=== PATIENT | female | born 1965 | race Caucasian/White ===

== ENCOUNTER 2021-10-02 12:53 | Emergency (ER) | payer OTHER, MEDICAID, SELFPAY ==
[2021-10-02 13:00] VITALS: BP 142/91; PULSE 93; RESP 18; TEMP 36.9; O2SAT 97; BMI 31.9
--- NOTE | 2021-10-02 13:17 | ED_ITS ---
HPI - General Adult General Chief complaint: Back Injury/Pain Stated complaint: Back pain Time Seen by Provider: 10/02/21 12:57 History of Present Illness HPI narrative: 55-year-old female coming in today complaining of back and bilateral leg pain. He states that she has ?4 slipped discs?. States she has been living in [place] for the last 2 and half years and getting her care there. She states that for these slipped this she has been taking only Tylenol. She states that when she got off the plane her back pain was significantly worse and the pain radiated down both legs: Laterally anteriorly to the knees and that both of her legs were swollen. She denies trauma to the legs. She denies trauma to her back. States that the back pain is in the low back and that generally has not gotten worse. She states that the pain in her legs is so significant that she can hardly walk. She states that her son has to help her get out of a chair to get going. She denies any fevers, chills, nausea or vomiting. She is not short of breath. She denies any coughing or chest pain. She denies no abdominal discomfort. She denies any loss of bowel or bladder function. I asked the patient what has helped her in the past and she becomes very angry at me stating that that is my job to figure out what will make her better. She tells me that she needs an MRI right away. I tell her that on a Sunday, that is not something that we can accommodate. Patient becomes even more upset telling me that I am supposed to be able to order any tests that I feel that she needs and she needs an MRI. When I tell her again that that is not possible today and I can certainly get her an outpatient appointment in the clinic she tells me that this is not acceptable. She tells me that then she needs an x-ray. I tell her that we will likely not see anything on x-ray given that her symptoms are not necessarily new which she has been dealing with them for the last 2 and half years. Patient yells at me and tells me that I do not know what I am doing. She then tells me that I better not give her any steroids ?my dad had a dose of steroids when they were 1st invented and he got better right away but now the steroids that you use make people worse and you use them so that people stay sick and you can keep making money off of them.? She also tells me that she does not understand why I am asking her so many questions. I tell her that I am asking her questions so that we can come up with the best care plan for her. She tells me that she does not believe me. She says ?you probably want to give me steroid shots every month so that I keep coming back here. But the shots are only going to make me worse and you don't care if I get better.? I Tell the patient that we are having significant miscommunication issues today and that my intent is to make her feel better and to come up with a care plan for her. I do tell her without any uncertainty however, that I cannot fix her problems today and take away her pain in their entirety. Patient replies with ?well the least you can do is an x-ray then. ? I did look the patient up on the drug monitoring web site- nothing found. I do not have access to [place]. Of note, patient does have a history of scoliosis with pamela placement. Related Data Home Medications Medication Instructions Recorded Confirmed No Known Home Medications 10/02/21 10/02/21 Allergies Allergy/AdvReac Type Severity Reaction Status Date / Time Sulfa (Sulfonamide Allergy Mild Itchiness Verified 10/02/21 13:08 Antibiotics) Review of Systems Status of ROS: Reports: 10 or more systems reviewed and unremarkable except as noted in History and below [facility] Medical History Slipped intervertebral disc Surgical History History of arthroplasty of right knee History of back surgery Social History Smoking Status: Current every day smoker Do you use any of these nicotine containing products: None How often do you have a drink containing alcohol: never AUDIT-C Alcohol total score: 0 Non-prescribed substance use: denies use Exam Narrative: Exam Narrative: Overweight well-developed patient in no acute distress. She does appear slightly disheveled. Answers questions appropriately. Affect is normal, mood is angry. Patient speaks and raises her voice in full sentences without needing to catch her breath. HEENT: Normocephalic atraumatic. Pupils are equally round reactive to light. Extraocular muscles are intact. Conjunctivae are moist without any icterus noted. Moist mucous membranes. Posterior pharynx is normal. Neck is soft without any lymphadenopathy or thyromegaly. No masses are appreciated. Cardiovascular: Heart is regular rate and rhythm S1 and S2 are present. Lungs: Clear to auscultation bilaterally. Patient takes deep breaths without any discomfort. Extremities: Bilateral lower extremities do have swelling around both ankles ho wever this is not pitting edema. She has normal DP and PT pulses. She has no significant discomfort when I palpate her calves. She has a negative Homans sign. Skin: Well perfused. Back: Has some postsurgical scarring. She has no significant tenderness over the thoracic or lumbar spine. She has a small rash right at the top of the buttocks that appears to be healing appropriately without signs of infection. She has no obvious step-offs or swelling noted. Strength is 5/5 of the bilateral extremities. Patient is able to get up from the chair without significant difficulty and walk. She does take small steps and does use her cane. However she tells me that she is in too much pain so she turned around and goes and sits back down. She is able to sit without needing assistance as well. When I ask her to move her legs when she is sitting however I do believe that due to poor effort she tells me that she cannot really move her legs, despite just getting up and walking. Const: Vital Signs, click to edit/add: Vital Signs - 24 hr 10/02/21 13:00 10/02/21 16:33 Temperature 98.5 F Pulse Rate [Left P ulse Oximeter] 93 66 Respiratory Rate 18 14 Blood Pressure [ri ght arm] 142/91 H 140/91 H Pulse Oximetry 97 96 Course Course Hospital Course: Per patient request we did go ahead and proceed with a lumbar spine x-ray. Given the amount of pain and swelling she was having of the bilateral lower extremities and recent long airplane trip, we also decided to proceed with a bilateral lower extremity ultrasound to rule out DVT. While she was getting this done patient did not tolerate the technology education teacher pushing on her legs. She apparently told the technology education teacher that she would have to kick her if she touched her again. So, an IV was started and she was given 2 mg of IV morphine. Patient then allowed the procedure to continue. Vital Signs Vital signs: Initial Vital Signs Temperature 98.5 F 10/02/21 13:00 Temperature Source Temporal Artery Scan 10/02/21 13:00 Pulse Rate 93 10/02/21 13:00 Respiratory Rate 18 10/02/21 13:00 Blood Pressure 142/91 H 10/02/21 13:00 Blood Pressure Mean 108 10/02/21 13:00 Blood Pressure Position Sitting 10/02/21 13:00 Pulse Oximetry 97 10/02/21 13:00 Oxygen Delivery Method 10/02/21 13:00 Vital Signs Temperature 98.5 F 10/02/21 13:00 Pulse Rate 93 10/02/21 13:00 Respiratory Rate 18 10/02/21 13:00 Blood Pressure 142/91 H 10/02/21 13:00 Pulse Oximetry 97 10/02/21 13:00 Temperature 98.5 F 10/02/21 13:00 Pulse Rate 66 10/02/21 16:33 Respiratory Rate 14 10/02/21 16:33 Blood Pressure 140/91 H 10/02/21 16:33 Pulse Oximetry 96 10/02/21 16:33 Medical Decision Making MDM Narrative Medical decision making narrative: I reviewed with the patient that the lumbar x-ray did not show any bony abnormalities she does have a lot of disc space narrowing which likely is not acute given the fact that she has been dealing with some form of radicular pain now for she states over 2 years. We also discussed the results of her lower extremity ultrasound which was normal. She then asked me ?what are you going to do for me? I stated that we treat this kind of radicular pain with steroids. Patient again stated that she will not take any steroids. I then offered her Toradol. Patient stated ?is that the 1 that is like ibuprofen? ? I told her that it is an NSAID that is stronger than ibuprofen. She stated well that is not going to work for me. Patient was adamant that the only thing that would work was Ultram. I told her that I generally do not treat radicular pain with narcotics. Patient then asked if she could have muscle relaxer instead then. I told her I would be happy to give her Toradol and Flexeril. She reluctantly accepted. Patient given a prescription for Toradol and Flexeril she is given the phone number to the clinic to establish care in the clinic. We discussed reasons to return to the ER including fevers, vomiting, loss of bowel or bladder function. Patient really was no longer interested in having any further conversation. Imaging Data Venous US: Attestation: I have reviewed the pertinent imaging results. Radiologist's impression: Ultrasound venous duplex lower extremity bilateral. Compression venous exam was performed using navarro-scale, color Doppler, and spectral Doppler imaging. COMPARISON: None. FINDINGS: Sonographic imaging demonstrates the common femoral, deep femoral, superficial femoral, popliteal, posterior tibial and greater saphenous veins to be fully compressible with normal color Doppler blood flow in both lower extremities. IMPRESSION: No DVT identified in either lower extremity. Lumbar spine xr: Attestation: I have reviewed the pertinent imaging results. Radiologist's impression: Lumbar spine 3 view. COMPARISON: None. FINDINGS: Bones: Moderate to severe left convex scoliosis. No subluxations. No sign of fracture or suspicious bone lesion. Joints: Multilevel disc space narrowing and degenerative disc spondylosis. Moderate diffuse facet joint spondylosis also present. No other specific finding to explain pain in the lumbar spine. Also of note is severe bilateral hip joint arthritis. Soft tissues: Unremarkable. Discharge Plan Discharge Clinical Impression: Lumbar radiculopathy Patient Disposition: Home, Self-Care Condition: Stable Additional Instructions: We will give you the phone number to the [facility]-you should call 1st thing in the morning to make an appointment and establish care. Okay to use Toradol for pain as instructed/as needed-you can also take Tylenol up to 3 g per day. You can use a heating pad to the lower back as needed-do not apply heat directly to skin. Lastly we will send you home with muscle relaxers as you requested. Both prescriptions sent to [facility]. Prescriptions: No Action No Known Home Medications 0RF Follow Up/Referrals: Promise Capone MD [Primary Care Provider] - Stand Alone Forms: [employer] Info Instructions
--- NOTE | 2021-10-02 13:39 | CRLHL7_ITS ---
For Patients: As a result of the Century Cures Act, medical imaging exams and procedure reports are released immediately into your electronic medical record. You may view this report before your referring provider. If you have questions, please contact your health care provider. INDICATION: Back pain with radiculopathy. TECHNIQUE: Lumbar spine 3 view. COMPARISON: None. FINDINGS: Bones: Moderate to severe left convex scoliosis. No subluxations. No sign of fracture or suspicious bone lesion. Joints: Multilevel disc space narrowing and degenerative disc spondylosis. Moderate diffuse facet joint spondylosis also present. No other specific finding to explain pain in the lumbar spine. Also of note is severe bilateral hip joint arthritis. Soft tissues: Unremarkable. Dictated by Rober Tamez MD @ 10/02/2021 2:33:28 PM (Electronically Signed)
--- NOTE | 2021-10-02 14:20 | CRLHL7_ITS ---
For Patients: As a result of the Cures Act, medical imaging exams and procedure reports are released immediately into your electronic medical record. You may view this report before your referring provider. If you have questions, please contact your health care provider. INDICATION: INDICATION: Bilateral calf swelling. TECHNIQUE: : Ultrasound venous duplex lower extremity bilateral. Compression venous exam was performed using navarro-scale, color Doppler, and spectral Doppler imaging. COMPARISON: None. FINDINGS: Sonographic imaging demonstrates the common femoral, deep femoral, superficial femoral, popliteal, posterior tibial and greater saphenous veins to be fully compressible with normal color Doppler blood flow in both lower extremities. IMPRESSION: No DVT identified in either lower extremity. Dictated by Hugo Guerin MD @ 10/02/2021 4:51:28 PM Dictated by: Hugo Guerin MD @ 10/02/2021 16:51:35 (Electronically Signed)
[2021-10-02] MEDS: MORPHINE 2 MG/ML inj IVP (15:46)
[2021-10-02 16:33] VITALS: BP 140/91; PULSE 66; RESP 14; O2SAT 96
== END 2021-10-02 17:02 | disposition home or self-care (01) ==
PROVIDERS: Emergency Provider Family Medicine; PCP Family Medicine
DX: M54.16 Radiculopathy, lumbar region (principal)
CPT/HCPCS: 72100; 93970; 96374; 99284; J2270